=== PATIENT | male | born 1965 | race Caucasian/White ===

== ENCOUNTER 2022-07-01 11:20 | Emergency (ER) | payer BC ==
[2022-07-01] MEDS ORDERED: Iopamidol 612 MG/ML 100 ML Bottle IVPUSH ONE (12:35)
[2022-07-01] MEDS ORDERED: Sodium Chloride 0.9% 10 ML Syringe FLUSH ONE (12:35)
[2022-07-01] MEDS ORDERED: Sodium Chloride 0.9% 100 ML IV SCH (12:45)
[2022-07-01] MEDS ORDERED: Iopamidol 612 MG/ML 50 ML SDV IVPUSH ONE (12:56)
[2022-07-01] MEDS: Sodium Chloride 0.9% 10 ML Syringe FLUSH PRN ×2 (13:07→13:15)
== END 2022-07-01 14:14 | disposition home or self-care (01) ==
LOC: JD.ED 11:20
DX: K57.32 Diverticulitis of large intestine without perforation or abscess without bleeding (principal); E78.00 Pure hypercholesterolemia, unspecified; I10 Essential (primary) hypertension; E11.9 Type 2 diabetes mellitus without complications; Z86.16 Personal history of COVID-19; Z87.891 Personal history of nicotine dependence
CPT/HCPCS: 36415; 74177; 80053; 81001; 83735; 85025; 86140; 99284; J3490; Q9967